=== PATIENT | female | born 2000 | race Caucasian/White ===

== ENCOUNTER 2019-06-04 18:11 | Emergency (ER) | payer BC ==
[2019-06-04] MEDS ORDERED: HYDROcodone/Acetaminophen 5/325 mg Tablet ONE (20:12)
== END 2019-06-04 20:15 | disposition home or self-care (01) ==
LOC: ERS 18:11
DX: H60.92 Unspecified otitis externa, left ear (principal); F32.9 Major depressive disorder, single episode, unspecified
CPT/HCPCS: 99282

== ENCOUNTER 2019-06-05 14:48 | Emergency (ER) | payer BC ==
[2019-06-05] MEDS ORDERED: HYDROcodone/Acetaminophen 10/325 mg Tablet ONE (15:55)
== END 2019-06-05 16:03 | disposition home or self-care (01) ==
LOC: ERS 14:48
DX: H66.92 Otitis media, unspecified, left ear (principal); F32.9 Major depressive disorder, single episode, unspecified
CPT/HCPCS: 99282